=== PATIENT | male | born 1975 | race Caucasian/White ===

== ENCOUNTER 2017-08-30 00:12 | Emergency (ER) | payer OTHER ==
[2017-08-30 01:07] LABS: Basophils # (A) 0.1 k/uL (0-0.2); Basophils % (A) 1 %; CH 31.9; CHCM 35.7; Eosinophils # (A) 0.4 k/uL (0-0.7); Eosinophils % (A) 4 %; HCT 42.2 % (39.0-53.0); HDW 2.72; HGB 14.7 gm/dL (13.0-17.5); Luc % (Auto) 2; Lymphocytes # (A) 2.4 k/uL (1.0-4.8); Lymphocytes % (A) 23 %; MCH 31.3 pg (25.0-35.0); MCHC 34.8 g/dL (31.0-37.0); MCV 89.8 fL (80.0-100.0); Mean Platelet Volume 7.1; Monocytes # (A) 0.5 k/uL (0-1.0); Monocytes % (A) 5 %; Neutrophils # (A) 6.7 k/uL (1.3-7.7); Neutrophils % (A) 65 %; RDW 12.4 % (11.5-15.5); WBC 10.2 k/uL (3.8-10.6)
[2017-08-30 01:11] LABS: INR 1.1 (<1.2); Partial Thromboplastin Time 24.2 sec (22.0-30.0)
[2017-08-30 01:13] LABS: ALT 36 U/L (21-72); AST 19 U/L (17-59); Alkaline Phosphatase 76 U/L (38-126); Anion Gap 11 mmol/L; Blood Urea Nitrogen 17 mg/dL (9-20); Calcium 9.8 mg/dL (8.4-10.2); Carbon Dioxide 23 mmol/L (22-30); Chloride 106 mmol/L (98-107); Glucose 96 mg/dL (74-99); Magnesium 2.3 mg/dL (1.6-2.3); Non-African American GFR(MDRD) >60 (>60 ml/min/1.73 sqM); Potassium 4.2 mmol/L (3.5-5.1); Sodium 140 mmol/L (137-145); Total Bilirubin 0.5 mg/dL (0.2-1.3)
[2017-08-30] MEDS ORDERED: RX INFO: IV CONTRAST WAS GIVEN 1 EACH MISC MISCELLANE PRN (01:22)
--- NOTE | 2017-08-30 01:26 | XR ---
EXAMINATION TYPE: XR chest 2V DATE OF EXAM: 08/30/2017 COMPARISON: NONE HISTORY: Chest pain TECHNIQUE: Frontal and lateral views of the chest are obtained. FINDINGS: Heart and mediastinum are normal. Lungs are clear. Diaphragm is normal. There are chest le ads. Bony thorax is intact. IMPRESSION: Normal chest
[2017-08-30 01:27] LABS: Creatine Kinase 110 U/L (55-170)
[2017-08-30 01:40] LABS: Troponin I <0.012 ng/mL (0.000-0.034)
--- NOTE | 2017-08-30 01:59 | CT ---
EXAMINATION TYPE: CT angio chest DATE OF EXAM: 08/30/2017 1:44 AM COMPARISON: NONE HISTORY: No prior, chest pain/tightness intermittent for 2 weeks, no cardiac history, elevated d-dime r R/O PE CT DLP: DLP:365.80 mGycm Automated exposure control for dose reduction was used. CONTRAST: CTA scan of the thorax is performed with IV Contrast, patient injected with 100 mL of Omnipaque 350, pulmonary embolism protocol. There are 3-D post processed images.. FINDINGS: The lungs are clear of infiltrate. There is no pleural effusion. There is normal contrast opacification of the pulmonary arteries. I see no filling defects. Thoracic aorta appears normal. There is no sign of aneurysm or dissection. Heart size is normal. There is no p ericardial effusion. There is no mediastinal adenopathy. There are no hilar masses. The bony thorax i s intact. IMPRESSION: NORMAL CT ANGIOGRAM OF THE CHEST. NO EVIDENCE OF PULMONARY EMBOLISM.
--- NOTE | 2017-08-30 02:26 | ED ---
Chest Pain HPI - General Chief Complaint: Chest Pain Stated Complaint: chest tightness Time Seen by Provider: 08/30/17 00:29 Source: patient Mode of arrival: ambulatory Limitations: no limitations - History of Present Illness Initial Comments: 41-year-old male patient presents to the emergency department today for evaluation of intermittent chest tightness 3-4 days. Patient states that he started having these episodes over the weekend. He states that the sensation appears to be substernal. He he reports that it feels like someone has "startled" him. He denies any other associated symptoms however states he has been more stressed out with work over the past few months. He denies any shortness of breath, nausea, vomiting, sweats, dizziness, or weakness with the episodes. Patient denies any recent rash, fever, chills, abdominal pain, diarrhea, constipation, back pain, numbness, tingling, hematuria, dysuria, urinary urgency, urinary frequency, headache, visual changes, or any other complaints. Patient denies use of tobacco products. Denies any significant past medical history. - Related Data Previous Rx's Medication Instructions Recorded ALPRAZolam [Xanax] 0.5 mg PO DAILY PRN #5 tablet 08/30/17 Allergies Allergy/AdvReac Type Severity Reaction Status Date / Time No Known Allergies Allergy Verified 08/30/17 00:20 Review of Systems ROS Statement: Those systems with pertinent positive or pertinent negative responses have been documented in the HPI. ROS Other: All systems not noted in ROS Statement are negative. EKG Findings - EKG Comments: EKG Findings:: EKG obtained at 00 30 reveals normal sinus rhythm with a ventricular rate of 70, ND interval of 136, QRS duration of 88, QT 372, QTc 401. No evidence of ST elevation or depression. Past Medical History Past Medical History: No Reported History History of Any Multi-Drug Resistant Organisms: None Reported Past Surgical History: No Surgical Hx Reported Past Psychological History: No Psychological Hx Reported Smoking Status: Never smoker Past Alcohol Use History: None Reported, Occasional Past Drug Use History: None Reported General Exam Limitations: no limitations General appearance: alert, in no apparent distress, other (This is a well- developed, well-nourished adult male patient in no acute distress. Vital signs upon presentation were temperature 98.9F, pulse 81, respirations 18, blood pressure 149/89, pulse ox 98% on room air.) Eye exam: Present: normal appearance, PERRL, EOMI. Absent: scleral icterus, conjunctival injection, nystagmus, periorbital swelling ENT exam: Present: normal exam, normal oropharynx, mucous membranes moist Respiratory exam: Present: normal lung sounds bilaterally. Absent: respiratory distress, wheezes, rales, rhonchi, stridor Cardiovascular Exam: Present: regular rate, normal rhythm, normal heart sounds. Absent: systolic murmur, diastolic murmur, rubs, gallop, clicks GI/Abdominal exam: Present: soft, normal bowel sounds. Absent: distended, tenderness, guarding, rebound, rigid Neurological exam: Present: alert, oriented X3, CN II-XII intact Psychiatric exam: Present: normal affect, normal mood Skin exam: Present: warm, dry, intact, normal color. Absent: rash Course Vital Signs 08/30/17 08/30/17 08/30/17 00:16 00:42 01:27 Temperature 98.9 F Pulse Rate 81 65 Respiratory 18 20 18 Rate Blood Pressure 149/89 125/84 O2 Sat by Pulse 98 100 Oximetry 08/30/17 02:37 Temperature 97.6 F Pulse Rate 59 L Respiratory 16 Rate Blood Pressure 126/71 O2 Sat by Pulse 99 Oximetry Chest Pain MDM - MDM Two-view x-ray of the chest shows a heart and mediastinum are normal. Lungs are clear. Diaphragm is normal. There are chest leads. Bony thorax is intact. Impression by Dr. Medina shows normal chest. CT angios chest with contrast shows the lungs are clear infiltrate. There is no pleural effusion. There is normal contrast opacification of the pulmonary arteries. I see no filling defects. Thoracic aorta appears normal. There is no sign of aneurysm or dissection. Heart size is normal. There is no pericardial effusion. There is no mediastinal adenopathy. There are no hilar masses. The bony thorax is intact. Impression by Dr. Medina shows normal CT angiogram of the chest. No evidence of pulmonary embolism. 41-year-old male patient presented to the emergency department today for complaints of intermittent chest tightness 3-4 days. Physical exam is unremarkable. Patient has no associated symptoms. Labs were reviewed and did have an elevated d-dimer at 1.40. We did obtain a CT angiogram of the chest which was negative for any acute abnormalities or pulmonary embolism. Chest x- ray was clear of any infiltrate and revealed no acute cardiopulmonary process. Patient does admit to having increased stress at work over the last few months. He states his stress level is quite severe, he is unable turn his mind off, and is having difficulty sleeping. I do believe there is some component of anxiety related to his symptoms. I did discuss findings and results with both patient and his . I did offer to supply him with a a few days worth of an anti-anxiety medication to see if this improves his symptoms. He is instructed as well to follow-up with his primary care physician for further evaluation and possible referral to cardiology for further workup. He is instructed to return here immediately should his symptoms change, worsen, or should he develop any new symptoms. He verbalized understanding and agreed with this plan. Disposition Clinical Impression: Chest tightness Disposition: HOME SELF-CARE Condition: Good Instructions: Chest Pain (ED), Anxiety (ED) Additional Instructions: Take medications as directed. Follow-up with your primary care physician for recheck in 1-2 days. Return here immediately for any new, worsening, or concerning symptoms. Prescriptions: ALPRAZolam [Xanax] 0.5 mg PO DAILY PRN #5 tablet PRN Reason: Anxiety Referrals: Jakob Zelaya MD [Primary Care Provider] - 1-2 days Time of Disposition: 02:26
[2017-08-30 02:38] VITALS: BP 126/71; PULSE 59; RESP 16; TEMP 97.6
== END 2017-08-30 02:37 | disposition home or self-care (01) ==
LOC: EC 00:12
DX: R07.89 Other chest pain (principal); R79.1 Abnormal coagulation profile
CPT/HCPCS: 36415; 93005; 85379; 80053; 82550; 82553; 83735; 84484; 85025; 85610; 85730; 71020; 71275; 99285; Q9967

== ENCOUNTER → 2020-10-03 | Outpatient (CLI) | payer OTHER ==
--- NOTE | 2020-10-03 09:44 | MR ---
EXAMINATION TYPE: MR knee RT wo con DATE OF EXAM: 10/03/2020 COMPARISON: None HISTORY: 44-year-old male M25.561, Right knee pain TECHNIQUE: Multiplanar, multisequence imaging of the right knee is performed without IV contrast. FINDINGS: ACL, PCL, MCL, and LCL complex appear intact. There seems to be some degenerative signal in the posterior horn extending to the junction of the med ial meniscal body. Signal does not clearly extend to contact either articular surface. Medial compart ment articular cartilage is maintained. Lateral meniscus is intact. Lateral compartment articular cartilage volume is maintained. Mild irregular cartilage loss along the lateral patellar facet. Additional mild irregular cartilage l oss along the mid trochlea. Extensor mechanism is intact. Trace effusion within the deep infrapatellar bursa. Physiologic joint fluid. There is a small Herrera's cyst extending superiorly where a 1.5 x 1.2 cm ganglion cyst may be forming, refer to sagittal image 11 and axial image 29. Normal popliteal artery anatomy. Mild generalized muscle atrophy. No suspicious bone marrow replaceme nt. IMPRESSION: 1. Degenerative signal involving the posterior horn of the medial meniscus with signal extending to t he junction with the medial meniscal body. Signal does not clearly contact either articular surface t o suggest a tear at this time. 2. Mild irregular cartilage loss along the lateral patellar facet and mid trochlea. 3. Small Herrera's cyst extending superiorly where a small 1.5 x 1.2 cm early ganglion cyst may be form ing.
== END | disposition home or self-care (01) ==
LOC: RADMRIMAIN 08:45
PROVIDERS: ATTEND Orthopaedic Surgery
DX: M67.461 Ganglion, right knee (principal); R93.89 Abnormal findings on diagnostic imaging of other specified body structures

== ENCOUNTER → 2024-05-29 | Day surgery (SDC) | payer OTHER ==
[~2024-05-29] MED LIST: ASPIRIN 81 MG ONE; ATORVASTATIN 10 MG TAB ONE; LORazepam 2 MG/ML INJ ONE; NITROGLYCERIN OINT 1 INCH/GM PACKET TOPICAL ONE; PARoxetine 20 MG TAB ONE
--- NOTE | 2024-06-19 14:43 | CA ---
Stress Echo Report Hong Ortiz Age: 48 Gender: M : 1975 Exam Date: 05/29/2024 13:03 Exam Location: [facility] Ht (in): 74 Wt (lb): 214 Ordering Physician: Referring Physician: TILA Complaint Operator: Gail Madrid RDCS Technologist Procedure CPT: Indication: ICD-9 Codes: Rhythm: Patient History: CHEST PAIN Cardiac Medications: Medications in past 24 hours: Contrast: Stress Results Protocol: Joel Total dose(mL): Exercise Duration (min:sec): 10:[address] Depression (mm): Angina Score: Flores Score: METS: 12.1 Resting HR: 59 Resting BP: 120 / 80 Peak HR: 173 Peak BP: 167 / 77 Max Predicted HR: 171 101 % Max Predicted HR Target HR: 145 Double Product: 80409 Stress Summary: BP Response: Reason for Termination: TARGET HR REACHED/MAX EXERTION Cardiac Symptoms: NO SYMPTOMS ECG Analysis Resting ECG: Normal sinus rhythm, normal ECG Stress ECG: No abnormal ST/T wave changes with exercise Arrhythmia: None Echo Analysis Resting Echo: Normal resting echocardiogram. Peak Echo Analysis: Normal wall motion augmentation MEASUREMENTS (Male/Female) Normal Values CONCLUSIONS No ECG evidence of ischemia with exercise. Normal treadmill stress echocardiogram. Dr. Alondra Jurado MD (Electronically Signed) Final Date: 29 May 2024 13:39
--- NOTE | 2024-06-24 14:40 | CA ---
Transthoracic Echo Report Name: Hong Ortiz Age: 48 Gender: M : 1975 Exam Date: 05/29/2024 13:26 Exam Location: [facility] Ht (in): 74 Wt (lb): 214 Ordering Physician: Attending/Referring Phys: Health Aide Gail Madrid RDCS Procedure CPT: Indications: Chest pain, unspecified Cardiac Hx: Technical Quality: Good Contrast 1: Total Dose (mL): Contrast 2: Total Dose (mL): MEASUREMENTS (Male / Female) Normal Values 2D ECHO LV Diastolic Diameter PLAX 4.5 cm 4.2 - 5.9 / 3.9 - 5.3 cm LV Systolic Diameter PLAX 2.6 cm IVS Diastolic Thickness 1.2 cm 0.6 - 1.0 / 0.6 - 0.9 cm LVPW Diastolic Thickness 1.1 cm 0.6 - 1.0 / 0.6 - 0.9 cm LV Relative Wall Thickness 0.5 RV Internal Dim ED PLAX 2.3 cm LA Systolic Diameter LX 4.1 cm 3.0 - 4.0 / 2.7 - 3.8 cm LV Diastolic Volume MOD 4C 75.4 cm??? LV Systolic Volume MOD 4C 41.1 cm??? LV Ejection Fraction MOD 4C 45.5 % LV Cardiac Index MOD 4C 1031.3 cm???/min???m??? LV Diastolic Length 4C 7.7 cm LV Systolic Length 4C 7.1 cm M-MODE Aortic Root Diameter MM 2.8 cm LA Systolic Diameter MM 3.9 cm LA Ao Ratio MM 1.4 AV Cusp Separation MM 2.1 cm DOPPLER MV Area PHT 2.8 cm??? Mitral E Point Velocity 87.7 cm/s Mitral A Point Velocity 57.1 cm/s Mitral E to A Ratio 1.5 MV Deceleration Time 268.2 ms TR Peak Velocity 229.3 cm/s TR Peak Gradient 21.0 mmHg Right Ventricular Systolic Press 25.5 mmHg FINDINGS Left Ventricle Left ventricular ejection fraction is estimated at 55-60 %. Mildly increased septal wall thickness. Left ventricular cavity size normal. Normal left ventricular systolic function with no obvious regional wall motion abnormalities. Right Ventricle Normal right ventricular size and function. Right ventricular systolic pressure within normal limits. Right Atrium Normal right atrial size. Left Atrium Mild left atrial dilatation. Mitral Valve Structurally normal mitral valve. Trace mitral regurgitation. No mitral stenosis. Aortic Valve Trileaflet aortic valve. No aortic stenosis. No aortic regurgitation. Tricuspid Valve Structurally normal tricuspid valve. Mild tricuspid regurgitation. No tricuspid stenosis. Pulmonic Valve Structurally normal pulmonic valve. No pulmonic stenosis. No pulmonic regurgitation. Pericardium No pericardial or pleural effusion. Aorta Normal size aortic root and proximal ascending aorta. CONCLUSIONS 1. Normal left ventricular size and systolic function 2. Mild tricuspid regurgitation with no evidence of pulmonary hypertension Previewed by: Dr. Alondra Jurado MD (Electronically Signed) Final Date: 30 May 2024 07:19
--- NOTE | 2024-06-25 10:01 | XR ---
Patient: Hong Ortiz Ordering Physician: Unknown, Unknown ID: [id number] Phone, Pager: Phone: N/A Pager: N/A : 1975 Age/Gender: 48Y, M Primary Location: N/A Procedure: XR CHEST 2V Study Date : 05/28/2024 3:10:00 PM EXAMINATION TYPE: XR chest 2V DATE OF EXAM: 05/28/2024 COMPARISON: NONE HISTORY: Chest pain TECHNIQUE: Frontal and lateral views of the chest are obtained. FINDINGS: There is no focal air space opacity. No evidence for pneumothorax. No pleural effusion. The cardiac silhouette size is within normal limits. The osseous structures are grossly intact. IMPRESSION: 1. No acute cardiopulmonary process.
--- NOTE | 2024-07-10 14:43 | HP ---
HISTORY AND PHYSICAL HISTORY OF PRESENT ILLNESS: This is a 48-year-old white male, history of sleep apnea, noncompliant with the CPAP machine for 6 months, came with atypical chest pain, bradycardia, negative cardiac enzymes. Waiting for a stress echo per Cardiology. When they clear him, he can go home today. His resting echo was good, I am not sure what the stress echo report is. Chest x-ray was negative also. 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 HOME MEDICINES: Include: 1. Paxil. 2. Atorvastatin. REVIEW OF SYSTEMS: On 14-point review of systems, he was having chest tightness when he ambulates at work. He works 7 days a week at the [employer] and he says he is under a lot of stress. PHYSICAL EXAMINATION: VITAL SIGNS: Reviewed. CARDIOVASCULAR: S1, S2. LUNGS: Transmitted upper sounds. GI: Soft. HEMATOLOGY: Negative for Homans. PSYCH: Fair mood and affect. NEUROLOGIC: Alert and oriented x3. ASSESSMENT: Atypical chest pain, anxiety, dyslipidemia, sleep apnea, discharge home if Cardiology clears him to follow up with Dr. Zelaya. Prognosis guarded. MMODL / IJN: [id number] /
== END ==
LOC: OR 00:46 → 6NMEDSUR 00:47 → UNDOADMIN 00:47 → UNDOADMOB 17:57 → 6NMEDSUR 17:57 → INTOOBSV 17:57 → UNDODISIN 05-30 11:09
PROVIDERS: ATTEND Family Medicine
DX: R07.89 Other chest pain (principal); E78.5 Hyperlipidemia, unspecified; F41.9 Anxiety disorder, unspecified; G47.33 Obstructive sleep apnea (adult) (pediatric); Z79.899 Other long term (current) drug therapy; Z91.199 Patient's noncompliance with other medical treatment and regimen due to unspecified reason
CPT/HCPCS: 96374; 99285; 93306; 93351; 71046; J2060